=== PATIENT | male | born 1945 | race Hispanic/Latino ===

== ENCOUNTER 2016-11-07 10:00 | Outpatient (CLI) | payer SELFPAY ==
[~2016-11-07] VITALS: Ht 157.5 cm; Wt 68.9 kg
[2016-11-07] MEDS ORDERED: SIMV10TA3 PO (10:13)
[2016-11-07] MEDS ORDERED: CLOP75TA69 PO (10:13)
[2016-11-07] MEDS ORDERED: CARV12.52 PO (10:13)
[2016-11-07] MEDS ORDERED: PANT40TA2 PO (10:13)
[2016-11-07] MEDS ORDERED: ASPI-586 PO (10:13)
== END 2016-11-07 11:15 ==
LOC: PREOP 10:00
PROVIDERS: ATTEND Surgery
DX: Z01.818 Encounter for other preprocedural examination (principal); K21.9 Gastro-esophageal reflux disease without esophagitis; R19.5 Other fecal abnormalities

== ENCOUNTER 2016-11-11 12:04 | Day surgery (SDC) | payer OTHER ==
[~2016-11-11] VITALS: Ht 157.5 cm; Wt 68.9 kg
[~2016-11-11 12:04] MED LIST: ASPI-586 PO; CARV12.52 PO; CLOP75TA69 PO; PANT40TA2 PO; SIMV10TA3 PO
[2016-11-11] MEDS ORDERED: NS IV 1000 ML 1,000 ML IV STA (12:13)
[2016-11-11] MEDS ORDERED: HURRICAINE EXT TUBE (BENZOCAINE) XX PRN (12:15)
[2016-11-11] MEDS ORDERED: NS IV 1000 ML 1,000 ML ONE (12:24)
[2016-11-11 12:42] VITALS: BP 125/71
--- NOTE | 2016-11-11 13:10 | Progress Note-Pre Operative ---
Pre-Operative Progress Note H&P Reviewed The H&P was reviewed, patient examined and no changes noted. Date H&P Reviewed: November 11, 2016 Time H&P Reviewed: 13:10 Pre-Operative Diagnosis: GERD, Occult + stool JACQUES DE LEON DO November 11, 2016 1:10 pm
[2016-11-11] MEDS ORDERED: proPOfol 200 MG/20 ML (DIPRIVAN) VIAL IV ONE (13:50)
--- NOTE | 2016-11-11 14:51 | Progress Note-Post Operative ---
Post-Operative Progess Note Surgeon (s)/Metallurgical Specialist (s) Surgeon JACQUES DE LEON DO Metallurgical Specialist: na Pre-Operative Diagnosis GERD, Occult + stool Post-Operative Diagnosis slight gastritis, hiatal hernia, colon polyp sigmoid Procedure & Operative Findings Date of Procedure 11/11/16 Procedure Preformed/Findings egd c biopsies, colonoscopy with hot bx polypectomy Anesthesia Type per english adjunct faculty Estimated Blood Loss Estimated blood loss (mL): none Specimens/Packing Specimens Removed antrum, distal esophagus, sigmoid polyp Packing: JACQUES Blanchard DO November 11, 2016 2:51 pm
--- NOTE | 2016-11-11 14:58 | Discharge Inst-Simple/Standard ---
Discharge Inst-Standard Patient Instructions/Follow Up Plan of Care/Instructions/FU: Hold plavix and Aspirin for 3 days Repeat colonoscopy in 5 years Follow up in clinic in 2 weeks. Activity as Tolerated: Yes Discharge Diet: No Restrictions JUMA GALE APRN November 11, 2016 14:58
[2016-11-11 15:00] VITALS: BP 122/74
--- NOTE | 2016-11-11 15:28 | OPERATIVE REPORT ---
DATE OF SERVICE: 11/11/2016 PREOPERATIVE DIAGNOSIS: Gastroesophageal reflux disease, occult stool. POSTOPERATIVE DIAGNOSES: Gastritis, hiatal hernia, colon polyp, sigmoid. PROCEDURE: EGD with biopsies; colonoscopy with hot biopsy polypectomy. SURGEON: Bobo Perez DO. ANESTHESIA: Per CULINARY SPECIALIST. ESTIMATED BLOOD LOSS: None. COMPLICATIONS: None. SPECIMEN: Antrum, distal esophagus and sigmoid polyp. INDICATIONS: The patient is a 71-year-old male with a history of colon resection, which they believed for perforation. He has been having some increasing gastroesophageal reflux disease and was found to have occult positive stool. He understands risks and benefits of the procedure and wished to proceed with procedure. Consent was signed on chart. DESCRIPTION OF PROCEDURE: The patient was taken to the endoscopy suite, placed in left lateral recumbent position. Timeout was performed. Scope was inserted in mouth, down into esophagus, stomach and into the duodenum without difficulty. There are no polyps, masses or ulcerations within the duodenum. The scope was slowly retracted back into the stomach. The patient had some slightly erythematous changes consistent with gastritis. Biopsy of the antrum was obtained. The scope was then retroflexed noting a small to moderate sized hiatal hernia. No polyps, mass, or ulceration. The scope was returned to its normal position and slowly withdrawn after biopsy of the antrum was obtained. In the distal esophagus there were some slight erythematous changes. Biopsy of the distal esophagus was obtained. There are no polyps, masses or ulcerations. Scope was slowly retracted back noting no other pathology. Scope completely removed. Digital rectal exam revealed no palpable polyps, masses or ulcerations. Some slight prominent hemorrhoid tissue present. Scope was inserted in the rectum and advanced all the way to the cecum with minimal difficulty. Prep was adequate with irrigation and suction. There were no polyps, masses or ulcerations in the cecum, ascending, transverse and descending colon. At the sigmoid colon, there was a small polyp which hot biopsy polypectomy was performed. Scope was continued retracted back. There appears to be an anastomosis near the rectum. The scope was retroflexed in the rectum noting internal hemorrhoidal tissue. Scope was returned to its normal position, slowly withdrawn until completely removed. The patient tolerated the procedure well without any complications. RECOMMENDATIONS: The patient will need repeat colonoscopy in 5 years. He will follow up in office in 2 weeks for pathology results. He is to continue on current medications. If the patient has any problems before the 5 year renee for colonoscopy, he should be reevaluated at that time. Job ID: [id number] DocumentID: [id number] Dictated Date: 11/11/2016 14:55:52 Supervisor [employer] Date: 11/11/2016 15:28:29 Dictated By: DO DESTINEE ROSENBAUM
[2016-11-11 15:30] VITALS: BP 128/78
[2016-11-11 16:00] VITALS: BP 128/78
== END 2016-11-11 15:45 | disposition home or self-care (01) ==
LOC: ENDO 12:04
PROVIDERS: ATTEND Surgery
DX: D12.5 Benign neoplasm of sigmoid colon (principal); R19.5 Other fecal abnormalities; K21.9 Gastro-esophageal reflux disease without esophagitis; K44.9 Diaphragmatic hernia without obstruction or gangrene; K29.70 Gastritis, unspecified, without bleeding; I25.10 Atherosclerotic heart disease of native coronary artery without angina pectoris; I10 Essential (primary) hypertension; E78.5 Hyperlipidemia, unspecified; Z95.5 Presence of coronary angioplasty implant and graft; Z79.899 Other long term (current) drug therapy
CPT/HCPCS: 88305

== ENCOUNTER → 2020-02-08 | Outpatient (CLI) | payer OTHER ==
[~2020-02-08] MED LIST changes: +SIMV10TA26 PO; -SIMV10TA3 PO
== END ==
LOC: CARD 09:08
PROVIDERS: ATTEND Internal Medicine Cardiovascular Disease
DX: I25.10 Atherosclerotic heart disease of native coronary artery without angina pectoris (principal); I08.3 Combined rheumatic disorders of mitral, aortic and tricuspid valves
CPT/HCPCS: 93306

== ENCOUNTER → 2020-09-03 | Outpatient (CLI) | payer OTHER ==
[~2020-09-03] VITALS: Ht 157 cm; Wt 77.0 kg
[~2020-09-03] MED LIST changes: +CATHETER FLUSH 10 ML SYR IV PRN; +REGADENOSON 0.4 MG/5 ML SYR (LEXISCAN) IV ONE
[2020-09-03 08:54] VITALS: BP 138/89
--- NOTE | 2020-09-03 11:29 | Cardiology Stress Test Report ---
Stress Test Report Date of Procedure/Referring: Date of Procedure: Sep 03, 2020 PCP Lissy Gonsalez MD Admitting Physician Center/[facility] Indications: Chest pain Baseline Heart Rate: 61 Baseline Blood Pressure: Blood Pressure Systolic: 138 Blood Pressure Diastolic: 89 Baseline Vitals Vital Signs Date Time Temp Pulse Resp B/P (MAP) Pulse Ox O2 Delivery O2 Flow Rate FiO2 09/03/20 08:54 61 138/89 (105) 99 Baseline EKG: Baseline EKG: normal sinus rhythm Summary After explaining the procedure to the patient, he signed a consent and then brought to the stress nuclear laboratory. Patient received 0.4 mg Lexiscan for stress test, ECG, heart rate and blood pressure were monitored continuously. Resting and stress dose of radio tracer were injected, imaging was acquired and reviewed in short axis, horizontal long axis and vertical long axis views. TID: 1.13 SSS: 36 SDS: 0 EF: 40 1. Patient tolerated Lexiscan well 2. 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 Prominent left ventricle, akinesia to dyskinesia of the apex, hypokinesia at the mid anterior wall and inferior wall, EF 40 percent LISSY GONSALEZ MD Sep 03, 2020 11:29
== END ==
LOC: CARD 08:00
PROVIDERS: ATTEND Internal Medicine Cardiovascular Disease
DX: R07.9 Chest pain, unspecified (principal)
CPT/HCPCS: 78452; 93017; A9502